=== PATIENT | female | born 1930 | race Caucasian/White ===

== ENCOUNTER 2017-09-02 09:12 | Emergency (ER) | payer MEDICARE ==
[2017-09-02 09:25] VITALS: RESP 16
--- NOTE | 2017-09-02 09:59 | ED ---
General Adult HPI - General Chief complaint: Fall Stated complaint: Fall-Rib Pain Time Seen by Provider: 09/02/17 09:50 Source: patient, RN notes reviewed Mode of arrival: ambulatory Limitations: no limitations - History of Present Illness Initial comments: Patient is an 87-year-old female presenting to the emergency room today with a chief complaint of injury to the right ribs. She does admit that yesterday she was going down a step outside on the deck lost her balance falling back and hitting the right side of the ribs. She states that she's felt pain with certain movements and if she coughs or sneezes. She states lying still in the stretcher she is pain free. Patient denies any head injury or loss consciousness. She does admit that she is on Coumadin due to a A. fib. Patient last had her level checked 10 days. Patient denies any other complaints or symptoms. Patient denies any recent fever, chills, shortness of breath, chest pain, nausea or vomiting, numbness or tingling, dysuria or hematuria, constipation or diarrhea, headaches or visual changes, or any other complaints. - Related Data Home Medications Medication Instructions Recorded Confirmed Atorvastatin [Lipitor] 80 mg PO HS 09/02/17 09/02/17 Calcium Carbonate [Calcium] 600 mg PO DIRECTED 09/02/17 09/02/17 Cholecalciferol [Vitamin D3] 1,000 unit PO DIRECTED 09/02/17 09/02/17 Ergocalciferol [Vitamin D2] 50,000 unit PO VU 09/02/17 09/02/17 Fenofibrate Nanocrystallized 145 mg PO DIRECTED 09/02/17 09/02/17 [Tricor] Levothyroxine Sodium [Synthroid] 75 mcg PO DAILY 09/02/17 09/02/17 Multivitamins, Thera [Multivitamin 1 tab PO DIRECTED 09/02/17 09/02/17 (formulary)] Sotalol [Betapace] 80 mg PO TID 09/02/17 09/02/17 Warfarin [Coumadin] 2.5 mg PO SUMOWETHFRSA 09/02/17 09/02/17 Warfarin [Coumadin] 3.75 mg PO TU 09/02/17 09/02/17 amLODIPine [Norvasc] 10 mg PO DAILY 09/02/17 09/02/17 Allergies Allergy/AdvReac Type Severity Reaction Status Date / Time No Known Allergies Allergy Verified 09/02/17 09:37 Review of Systems ROS Statement: Those systems with pertinent positive or pertinent negative responses have been documented in the HPI. ROS Other: All systems not noted in ROS Statement are negative. Past Medical History Past Medical History: Atrial Fibrillation, Hypertension, Thyroid Disorder History of Any Multi-Drug Resistant Organisms: None Reported Past Surgical History: Coronary Bypass/CABG, Pacemaker Additional Past Surgical History / Comment(s): Melanoma removed on face, cararact surgery Past Psychological History: No Psychological Hx Reported Smoking Status: Never smoker Past Alcohol Use History: Rare Past Drug Use History: None Reported General Exam - General Exam Comments Initial Comments: General: The patient is awake and alert, in no distress, and does not appear acutely ill. Eye: Pupils are equal, round and reactive to light, extra-ocular movements are intact. No nystagmus. There is normal conjunctiva bilaterally. No signs of icterus. Ears, nose, mouth and throat: There are moist mucous membranes and no oral lesions. Neck: The neck is supple, there is no tenderness or JVD. Cardiovascular: There is a regular rate and rhythm. No murmur, rub or gallop is appreciated. Respiratory: Lungs are clear to auscultation, respirations are non-labored, breath sounds are equal. No wheezes, stridor, rales, or rhonchi. Gastrointestinal: Soft, non-distended, non-tender abdomen without masses or organomegaly noted. There is no rebound or guarding present. No CVA tenderness. Musculoskeletal: Normal ROM. Tender palpation over the right lateral lower ribs. No step-off deformity. Strength 5/5. Sensation intact. Pulses equal bilaterally 2+. Neurological: A&O x 3. CN II-XII intact, There are no obvious motor or sensory deficits. Coordination appears grossly intact. Speech is normal. Skin: Skin is warm and dry and no rashes or lesions are noted. Psychiatric: Cooperative, appropriate mood & affect, normal judgment. Limitations: no limitations Course Vital Signs 09/02/17 09:22 Temperature 98.1 F Pulse Rate 88 Respiratory 16 Rate Blood Pressure 120/90 O2 Sat by Pulse 97 Oximetry Medical Decision Making - Medical Decision Making Patient reexamined at this time shows no signs of distress she is resting comfortably. Patient labs reviewed INR 3.9. Patient advised hold Coumadin for the next 2 days and have her INR rechecked. Patient's CT of the brain is negative for any acute abnormalities. Her x-ray of the chest and right ribs reveal fractures of the sixth, 8, 9, 10 ribs. Results were discussed with the patient. Options were discussed with patient about admission. She has declined she states she would like to go home. She states she's relatively comfortable. She is advised to continue with her Tylenol extra strength for the pain. Patient will be given incentive spirometer here in the emergency room. Patient will be discharged home to follow-up over the next 2 days. Advised return if symptoms increase worsen. She states understanding and is in agreement. - Lab Data Lab Results 09/02/17 Range/Units 10:20 PT 35.3 H (9.0-12.0) sec INR 3.9 H (<1.2) Disposition Clinical Impression: Multiple rib fractures, Fall, Elevated INR Disposition: HOME SELF-CARE Condition: Good Instructions: Rib Fracture (ED) Additional Instructions: Please hold Coumadin for the next 2 days and have level rechecked. Please brace right lower ribs with certain movements of coughing, sneezing as discussed. Please use Tylenol for pain. Please return to emergency room if the symptoms increase or worsen or for any other concerns. Is patient prescribed a controlled substance at d/c from ED?: No Referrals: Lyssa Key MD [Primary Care Provider] - 1-2 days Time of Disposition: 12:23
--- NOTE | 2017-09-02 10:17 | XR ---
EXAMINATION TYPE: XR ribs RT DATE OF EXAM: 09/02/2017 COMPARISON: 02/24/2012 HISTORY: Right-sided rib pain after a fall TECHNIQUE: Frontal and oblique views of the right wrist are obtained FINDINGS: There is a nondisplaced rib fracture of the lateral margin of rib 6 on the right as well as of the anterior lateral ribs 8, 9 and 10. Remainder of the right ribs are nondisplaced and appear in tact. There is partial visualization of median sternotomy wires and cardiac leads with similar-appear ing dehiscence of a mid sternotomy wire. IMPRESSION: Nondisplaced acute fractures of the lateral margin of rib 6 on the right and anterolatera l margin of ribs 8 through 10 on the right.
[2017-09-02 10:45] LABS: INR 3.9 (<1.2); Prothrombin Time 35.3 sec (9.0-12.0)
--- NOTE | 2017-09-02 11:43 | CT ---
EXAMINATION TYPE: CT brain wo con DATE OF EXAM: 09/02/2017 HISTORY: Fall yesterday with possible injury and headache. CT DLP: 1121 mGycm. Automated Exposure Control for Dose Reduction was Utilized. TECHNIQUE: CT scan of the head is performed without contrast. COMPARISON: CT brain April 15, 2012 FINDINGS: There is no acute intracranial hemorrhage or midline shift identified. There is diffuse v entricular and sulcal prominence consistent with diffuse age-related cerebral atrophy. There is low- attenuation in the periventricular white matter consistent with chronic small vessel ischemic change. Bilateral basal ganglia calcifications are redemonstrated. The globes are intact and the visualized sinuses are clear. The calvarium is intact. IMPRESSION: No acute intracranial hemorrhage or midline shift. There is moderate diffuse age-relate d cerebral atrophy and chronic small vessel ischemic change redemonstrated. No significant change fr om prior.
[2017-09-02 12:44] VITALS: BP 179/61; PULSE 98; TEMP 97.8
== END 2017-09-02 12:43 | disposition home or self-care (01) ==
LOC: EC 09:12
DX: S22.41XA Multiple fractures of ribs, right side, initial encounter for closed fracture (principal); R79.1 Abnormal coagulation profile; I48.91 Unspecified atrial fibrillation; I10 Essential (primary) hypertension; E07.9 Disorder of thyroid, unspecified; Z79.899 Other long term (current) drug therapy; Z79.01 Long term (current) use of anticoagulants; Z85.820 Personal history of malignant melanoma of skin; Z95.0 Presence of cardiac pacemaker; Z95.1 Presence of aortocoronary bypass graft; W10.9XXA Fall (on) (from) unspecified stairs and steps, initial encounter
CPT/HCPCS: 36415; 70450; 85610; 99284